=== PATIENT | male | born 1940 | race Caucasian/White ===

== ENCOUNTER → 2017-04-18 | Outpatient (CLI) | payer OTHER | LOC: FIMAGING 11:58 | PROVIDERS: ATTEND Physician Assistant Surgical | DX: M50.320 Other cervical disc degeneration, mid-cervical region, unspecified level (principal) ==

== ENCOUNTER 2018-03-28 07:15 | Observation (INO) | payer OTHER ==
--- NOTE | 2018-03-28 22:26 | PDANEPAE ---
ANE History of Present Illness 77 yo with neck pain, DJD ANE Past Medical History - Cardiovascular History Hx Hypertension: Yes Hx Arrhythmias: No Hx Chest Pain: No Hx Coronary Artery / Peripheral Vascular Disease: Yes Hx CHF / Valvular Disease: Yes Hx Palpitations: No Cardiovascular History Comment: GABGX3 1999. [place] 1999 - Pulmonary History Hx COPD: No Hx Asthma/Reactive Airway Disease: No Hx Recent Upper Respiratory Infection: No Hx Oxygen in Use at Home: No Hx Sleep Apnea: No Sleep Apnea Screening Result - Last Documented: Positive - Neurologic History Hx Cerebrovascular Accident: No Hx Seizures: No Hx Dementia: No - Endocrine History Hx Diabetes: No Hypothyroid: No Hyperthyroid: No Obesity: no - Renal History Hx Renal Disorders: Yes Renal History Comment: BPH - Liver History Hx Hepatic Disorders: No - Neurological & Psychiatric Hx Hx Neurological and Psychiatric Disorders: No - Cancer History Hx Cancer: Yes 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 CHEMOTHERAPY/ RADIATION UNTIL 2009 - Congenital Disorder History Hx Congenital Disorders: No - GI History GERD: mild Hx Gastrointestinal Disorders: Yes Gastrointestinal History Comment: GERD. HEMORRHOIDS - Other Health History Other Health History: RADHA LOWER LEG TINY RED SPOT USES TOPICAL EVERY 3 DAYS. UPPER LT PARTIAL. ABDOMINAL SWELLING IF GOES OFF LASIX - Chronic Pain History Chronic Pain: Yes (RT SIDE OF NECK INTO SKULL,RT SHLDR) - Surgical History Prior Surgeries: MITRAL VALVE CLIPS [facility]17 [facility] LUMBAR FUSION FOR CANCEROUS TUMOR 12/2008. GABG X3 1999 ANE Review of Systems Review of Systems: - Exercise capacity METS (RN): 4 METS ANE Patient History - Allergies Allergies/Adverse Reactions: No Known Allergies Allergy (Verified 03/13/18 11:06) - Home Medications Home Medications: Acyclovir HS 03/14/18 [Last Taken 03/28/18] Clopidogrel HS 03/14/18 [Last Taken 03/20/18] Eliquis BID 03/14/18 [Last Taken 03/22/18] Furosemide BID 03/14/18 [Last Taken 03/22/18] Herbals/Supplements -Info Only DAILY 03/14/18 [Last Taken 03/22/18] Melatonin HS 03/14/18 [Last Taken 03/28/18] Omeprazole DAILY 03/14/18 [Last Taken 03/22/18] Potassium Acetate DAILY 03/14/18 [Last Taken 03/22/18] Tamsulosin HCl DAILY 03/14/18 [Last Taken 03/28/18] Vitamin B-12 DAILY 03/14/18 [Last Taken 02/19/18] oxyCODONE CR PRN 03/14/18 [Last Taken Unknown] Ipratropium 03/29/18 [Last Taken 03/28/18] Methocarbamol 750 mg PO QID 03/29/18 [Last Taken Unknown] traZODONE 100MG (*) 03/29/18 [Last Taken 03/28/18] - Anes Hx Anes Hx: no prior problems - Smoking Hx Smoking Status: Former smoker - Alcohol Use Alcohol Use: Occasionally - Family Anes Hx Family Anes Hx: none ANE Labs/Vital Signs - Vital Signs Height: 182.88 cm Weight: 79.061 kg ANE Physical Exam - Airway Neck exam: FROM Mallampati Score: Class 2 Mouth exam: normal dental/mouth exam - Pulmonary Pulmonary: no respiratory distress, clear to auscultation - Cardiovascular Cardiovascular: regular rate and rhythym, systolic murmur, bradycardia - ASA Status ASA Status: III ANE Anesthesia Plan Anesthesia Plan: general endotracheal anesthesia
[2018-03-29] MEDS ORDERED: GABAPENTIN 300 MG CAP PO ONE (05:54)
[2018-03-29] MEDS ORDERED: ACETAMINOPHEN 500 MG TAB PO ONE (05:54)
[2018-03-29] MEDS ORDERED: ceFAZolin 2 GM/DEXTROSE 100 ML IV ONE (05:54)
[2018-03-29] MEDS ORDERED: LR 1,000 ML IV ONE (05:56)
[2018-03-29] MEDS ORDERED: PROPOFOL/EMULSION 500 MG/50 ML BOTTLE IV ONE ×2 (06:37→06:41)
[2018-03-29] MEDS ORDERED: fentaNYL 250 MCG/5 ML INJ ONE (06:37)
[2018-03-29] MEDS ORDERED: LIDOCAINE 2% 5 ML SDV ONE (06:37)
[2018-03-29 06:41] LABS: PLATELET COUNT 112 10^3/uL (150-400)
[2018-03-29] MEDS ORDERED: CHLORHEXIDINE GLUC HIBICLENS 118 ML BTL TP ONE (06:46)
[2018-03-29] MEDS ORDERED: THROMBIN (BOVINE) 5,000 UNIT VIAL TP ONE (06:47)
[2018-03-29] MEDS ORDERED: BACITRACIN 50,000 UNITS/10 ML SYR IRR ONE (06:47)
[2018-03-29] MEDS ORDERED: BUPIVACAINE/EPI 0.25% 30 ML SDV ONE (06:47)
--- NOTE | 2018-03-29 07:09 | PDHPUP ---
History & Physical Update H&P update statement: This history and physical update is based on an assessment of the patient which was completed after admission or registration (within 24 hours), but prior to the surgery/procedure. H&P update: no change in patient's condition since H&P completed (no changes)
[2018-03-29] MEDS ORDERED: DEXAMETHASONE 4 MG/ML VIAL ONE (07:39)
--- NOTE | 2018-03-29 08:19 | POSTANESTH ---
Post Anesthetic Evaluation Cardiovascular Status: Normal, Stable Respiratory Status: Normal, Stable Level of Consciousness/Mental Status: Can Participate in Eval Pain Control: Adequate, Prn Tx Ordered Nausea/Vomiting Control: Adequate, Prn Tx Ordered Complications Possibly Related to Anesthesia: None Noted
[2018-03-29] MEDS ORDERED: NALOXONE HCL 0.4 MG/ML INJ IVP PRN (08:20)
[2018-03-29] MEDS ORDERED: ACETAMINOPHEN 500 MG TAB PO PRN (08:20)
[2018-03-29] MEDS ORDERED: PROMETHAZINE HCL 25 MG/ML INJ IVP PRN (08:20)
[2018-03-29] MEDS ORDERED: fentaNYL 100 MCG/2 ML INJ IVP PRN (08:20)
[2018-03-29] MEDS ORDERED: HYDROmorphONE/DILAUDID 2 MG/ML INJ IVP PRN (08:20)
[2018-03-29] MEDS ORDERED: MEPERIDINE 25 MG/0.5 ML AMP IVP PRN (08:20)
--- NOTE | 2018-03-29 09:10 | POSTOPPROG ---
Post Op Note Date of Operation: 03/29/18 Surgeon: [facility] Admissions Director: Bertin Davis PAC Anesthesiologist: Jaquan Ortiz MD Anesthesia: GET(General Endotracheal) Pre-op Diagnosis: cervical instability/ stenosis/DJD Post-op Diagnosis: same Indication: Pain Procedure: C4/5 ACDF Findings: stenosis Inf/Abcess present in the surg proc area at time of surgery?: No EBL: Minimal Complications: None Drains: Dipesh Maurer (to bulb suction)
[2018-03-29] MEDS ORDERED: oxyCODONE IR 5 MG TAB PO PRN (09:12)
[2018-03-29] MEDS ORDERED: METHOCARBAMOL 750 MG TAB PO PRN (09:12)
[2018-03-29] MEDS ORDERED: MAGNESIUM HYDROXIDE 30 ML UDCUP PO PRN (09:12)
[2018-03-29] MEDS ORDERED: LACTULOSE 20 GM/30 ML UDCUP PO PRN (09:12)
[2018-03-29] MEDS ORDERED: diphenhydrAMINE 25 MG CAP PO PRN (09:12)
[2018-03-29] MEDS ORDERED: ONDANSETRON 4 MG/2 ML VIAL IVP PRN (09:12)
[2018-03-29] MEDS ORDERED: BISACODYL 10 MG SUPP PR PRN (09:12)
[2018-03-29] MEDS ORDERED: ONDANSETRON DISINTEGRATING 4 MG TAB PO PRN (09:12)
--- NOTE | 2018-03-29 09:12 | SOAPPROG ---
SOAP Progress Note Assessment/Plan: POST OP CHECK: Assessment: doing well s/p C4/5 ACDF Plan: Hard collar ANDREINA to bulb suction transfer to floor for observation and DC after 4 hrs if doing well 03/29/18 09:10 Subjective: S: asleep, opens eyes to voice. comfortable Objective: Vital Signs Temp Pulse Resp BP Pulse Ox 36.6 C 48 L 16 109/69 97 03/29/18 06:19 03/29/18 06:19 03/29/18 06:19 03/29/18 06:19 03/29/18 06:19 Laboratory Results 03/29/18 06:37 03/29/18 06:37 Neuro: PERRLA, EOMI GONZALEZ, sens +LT follows commands x 4 Vitals: HR:75 BP: 105/69 O2: 97% face mask ICD10 Worksheet Patient Problems: Problems Problem Status Onset Cervical disc disease Acute Cervical disc disorder at C4-C5 level with radiculopathy Acute - ICD10 Problem Qualifiers (1) Cervical disc disease (2) Cervical disc disorder at C4-C5 level with radiculopathy
[2018-03-29] MEDS ORDERED: NS 1,000 ML IV SCH (09:15)
[2018-03-29] MEDS ORDERED: TAMSULOSIN HCL 0.4 MG CAP PO SCH (13:00)
--- NOTE | 2018-03-29 13:17 | GOP ---
DATE OF OPERATION: 03/29/2018 SURGEON: Dom Agudelo MD NEUROSURGEON: Dom Agudelo MD. PEDIATRIC GENETIC COUNSELOR: Bertin Aceves. ANESTHESIA: General endotracheal. PREOPERATIVE DIAGNOSIS: Severe C4-5 degenerative disk disease, spondylolisthesis, and instability wi th intractable neck pain and right scapular pain. Severe neural foraminal encroachment. Failed cons ervative care. POSTOPERATIVE DIAGNOSIS: Severe C4-5 degenerative disk disease, spondylolisthesis, and instability w ith intractable neck pain and right scapular pain. Severe neural foraminal encroachment. Failed con servative care. PROCEDURE PERFORMED: Mini open exposure for complete C4-5 anterior cervical diskectomy and arthrodes is with a structural polyetheretherketone interbody spacer, local autograft, and demineralized bone m atrix. Placement of a [place]-P anterior cervical plate at C4-5. Use of intraoperative micro scopy and fluoroscopy. FINDINGS: ESTIMATED BLOOD LOSS: Trace. INDICATIONS: The patient is a 77-year-old man with intractable neck pain and right scapular discomfo rt secondary to severe degenerative joint disease and spondylolisthesis with some hypermobility and n eural foraminal encroachment. He has failed extensive conservative care and presents now for surgica l decompression and stabilization through a mini open approach. DESCRIPTION OF PROCEDURE: After informed consent was obtained, the patient was taken to the operatin g room and placed in the supine position with the head in the Halter retractor system. The anterior cervical region was prepped and draped in a sterile fashion. After fluoroscopic localization of the correct levels, the subcutaneous and intramuscular tissues were infiltrated with local anesthesia. A horizontal incision was then created at the level of the C4-5 interspace and a skin crease. This ca rried through the platysmal layer using monopolar electrocautery and carried in the avascular plane b etween the sternocleidomastoid and carotid sheath laterally and the strap muscles, trachea, and esoph elver medially down to the prevertebral fascia, which was carefully incised with Metzenbaum scissors. The C4-5 interspace was identified and re-verified using intraoperative fluoroscopy. [place] distrac tion pins were then inserted, and under slight amount of distraction, a complete diskectomy was perfo rmed with preparation of the endplates and removal of posterior longitudinal ligament. Bilateral for aminotomies were performed and the posteriorly protruding osteophytes were removed and harvested for local autograft. The wound and disk space were copiously irrigated with antibiotic irrigation. Meti culous hemostasis was achieved. The remaining endplates were carefully prepared, and an appropriatel y sized structural PEEK interbody spacer was packed with local autograft in the center along with dem ineralized bone matrix. It was placed in the interspace under fluoroscopic image guidance. The dist raction was then removed, and an appropriately sized 21 mm [place]-P anterior cervical plate was t hen placed at C4-5 with self-drilling screws. After re-verification of good position of the plate sc rews and interbody spacer using biplanar fluoroscopy, a drain was placed. The subcutaneous and intra muscular tissues were re-infiltrated with local anesthesia, and the wound was closed in a layered fas hion using interrupted Vicryl sutures followed by Steri-Strips on the skin. COMPLICATIONS: None. DISPOSITION: The patient was extubated and transferred to the recovery room in stable condition. /[id number]/MODL
[2018-03-29] MEDS ORDERED: ceFAZolin 2 GM/DEXTROSE 100 ML IV SCH (15:30)
[2018-03-29 15:54] VITALS: BP 114/76
[2018-03-29] MEDS ORDERED: CEPHALEXIN 500 MG CAP PO SCH (16:00)
[2018-03-29] MEDS ORDERED: POLYETHYLENE GLYCOL 3350 17 GM PKT PO SCH (16:00)
[2018-03-29] MEDS ORDERED: SENNOSIDES/DOCUSATE SODIUM TAB PO SCH (21:00)
[2018-03-29] MEDS ORDERED: ATORVASTATIN CALCIUM 40 MG TAB PO SCH (21:00)
[2018-03-29] MEDS ORDERED: MAGNESIUM OXIDE 400 MG TAB PO SCH (21:00)
[2018-03-29] MEDS ORDERED: FAMOTIDINE 20 MG TAB PO SCH (21:00)
[2018-03-30] MEDS ORDERED: CHOLECALCIFEROL VIT D3 2,000 UNITS TAB/CAP PO SCH (09:00)
[2018-03-30] MEDS ORDERED: FUROSEMIDE 40 MG TAB PO SCH (09:00)
[2018-03-30] MEDS ORDERED: METOPROLOL TARTRATE 25 MG TAB PO SCH (09:00)
[2018-03-30] MEDS ORDERED: ENOXAPARIN 40 MG/0.4 ML SYR SC SCH (09:00)
== END 2018-03-29 17:16 | disposition home or self-care (01) ==
LOC: EEVIPCON 07:15 → F3N 03-29 05:35
PROVIDERS: ADMIT Neurological Surgery; ATTEND Neurological Surgery
PROC: 4A10X4G Monitoring of Central Nervous Electrical Activity, Intraoperative, External Approach (ICD-10-PCS; principal; 2018-03-29 07:15)
PROC: 0RB30ZZ Excision of Cervical Vertebral Disc, Open Approach (ICD-10-PCS; principal; 2018-03-29 07:15)
PROC: 0RG10A0 Fusion of Cervical Vertebral Joint with Interbody Fusion Device, Anterior Approach, Anterior Column, Open Approach (ICD-10-PCS; principal; 2018-03-29 07:15)
PROC: BR101ZZ Fluoroscopy of Cervical Spine using Low Osmolar Contrast (ICD-10-PCS; principal; 2018-03-29 07:15)
DX: M48.02 Spinal stenosis, cervical region (principal); M43.12 Spondylolisthesis, cervical region; M50.121 Cervical disc disorder at C4-C5 level with radiculopathy; M50.320 Other cervical disc degeneration, mid-cervical region, unspecified level; M53.2X2 Spinal instabilities, cervical region; K21.9 Gastro-esophageal reflux disease without esophagitis; C85.10 Unspecified B-cell lymphoma, unspecified site; Z79.01 Long term (current) use of anticoagulants; Z92.21 Personal history of antineoplastic chemotherapy; Z92.3 Personal history of irradiation; Z98.1 Arthrodesis status; Z87.891 Personal history of nicotine dependence
CPT/HCPCS: 22551; 72040; 76001; C1713; J0690; J1100; J2704; J3010

== ENCOUNTER → 2018-09-25 | Outpatient (CLI) | payer OTHER | LOC: FIMAGING 10:28 | PROVIDERS: ATTEND Physician Assistant Surgical | DX: M43.22 Fusion of spine, cervical region (principal); M50.320 Other cervical disc degeneration, mid-cervical region, unspecified level ==